=== PATIENT | female | born 1965 | race Caucasian/White ===

== ENCOUNTER 2019-07-04 07:26 | Inpatient (IN) ==
[2019-07-04] MEDS ORDERED: ASPIRIN PO ONE (07:36)
[2019-07-04] MEDS ORDERED: ASPIRIN PR ONE (07:36)
[2019-07-04 07:53] LABS: BASO# 0.09 X1000 (0.0-0.2); BASO% 0.8 % (0.0-0.8); EOS# 0.49 X1000 (0.0-0.7); EOS% 4.5 % (0.0-10.0); HEMATOCRIT 44.6 % (37.0-47.0); HEMOGLOBIN 15.1 g/dL (12.0-16.0); IMM GRAN# 0.02 X1000 (0.0-0.04); IMM GRAN% 0.2 % (0.0-0.5); LYMPH# 4.31 X1000 (1.2-3.4); LYMPH% 39.8 % (20.5-51.1); MCHC 33.9 g/dL (33-37); MCV 85.6 FL (81-99); MONO# 1.04 X1000 (0.11-0.59); MONO% 9.6 % (1.7-9.3); MPV 9.9 FL (7.4-10.4); NEUT# 4.88 X1000 (1.4-6.5); NEUT% 45.1 % (42.2-75.2); PLT 353 X1000 (130-400); RBC 5.21 XMIL (4.2-5.4); RDW 13.3 % (11.5-14.5); WBC 10.83 X1000 (4.8-10.8)
[2019-07-04] MEDS ORDERED: DUONEB (A & A) INH ONE (07:57)
[2019-07-04] MEDS ORDERED: NITROGLYCERIN SL ONE (07:57)
--- NOTE | 2019-07-04 08:03 | PROVIDER DOCUMENTATION ---
HPI-Chest Pain - General Chief Complaint: Chest Pain Stated Complaint: SOB Time Seen by Provider: 07/04/19 07:42 Source: patient Allergies/Adverse Reactions: Patient Allergies Allergy/AdvReac Type Severity Reaction Status Date / Time amoxicillin Allergy Unknown Unknown Verified 07/04/19 07:58 Home Medications: Home Medication List Medication Instructions Recorded Confirmed Last Taken Type Albuterol Sulfate Inhaler 1 puff INH PRN PRN 11/24/18 07/04/19 Unknown History [Ventolin Hfa] LISINOpril [Prinivil] 20 mg PO DAILY 11/24/18 07/04/19 Unknown History Atorvastatin Calcium [Lipitor] 1 tab PO DAILY 07/04/19 07/04/19 Unknown History Metformin [Glucophage] 1 tab PO BID 07/04/19 07/04/19 Unknown History Tiotropium [place] Inhaler 1 cap IN DAILY 07/04/19 07/04/19 Unknown History [Spiriva] - History of Present Illness-CP Nature of Presenting Problem: LONGSTANDING COPD PT AND SMOKER 1/2 PPD REPORTS INCREASED SOB X 2 DAYS, EXTRA COUGH W/ WHITE SPUTUM. NO FEVER. STERNA CHEST PRESSURE SINCE 05:30 TODAY. + ASSOCIATED SOB,DIAPHORESIS NO NAUSEA NO PRIOR CARDIAC HX. TREATED FOR HTN,COPD, Review of Systems - Adult - REVIEW OF SYSTEMS - ADULT Constitutional: reports: no symptoms reported. denies: chills, fever Eyes: reports: no symptoms reported Ears, Nose, Mouth & Throat: reports: no symptoms reported Cardiovascular: reports: see HPI Respiratory: reports: see HPI Gastrointestinal: reports: no symptoms reported Genitourinary: reports: no symptoms reported Musculoskeletal: reports: no symptoms reported Integumentary: reports: no symptoms reported Neurological: reports: no symptoms reported Psychiatric: reports: no symptoms reported Endocrine: reports: no symptoms reported Hematologic/Lymphatic: reports: no symptoms reported Allergic/Immunologic: reports: no symptoms reported All Other Systems: Reviewed and Negative Past History - Adult - PAST MEDICAL HISTORY-ADULT Review of Records: reports: Nursing Assessment Review, Medications Reviewed, Social history reviewed & non-contributory. Major Childhood Illnesses: reports: denies history Cardiovascular: reports: HTN Respiratory: reports: COPD (was on medication) Gastrointestinal: reports: denies history Obstetrical/Gynecological: reports: other (had 2 : 1 vaginal and 1 csec) Genitourinary: reports: denies history Musculoskeletal: reports: denies history Neurological: reports: denies history Psychiatric: reports: denies history Endocrine/Immune: reports: Diabetes Other Conditions: reports: denies history - PRIOR SURGERIES/PROCEDURES Surgical/Procedure History: reports: BTL, (x1) - IMMUNIZATION STATUS Childhood Immunizations: See Nurse Assessment Flu Vaccine: See Nurse Assessment - FAMILY HISTORY Family History: diabetes, cancer (lung, mother ), CVA/TIA (brother), other (siblings with thyroid) Physical Exam-General - PHYSICAL EXAM-ADULT Initial Vital Signs Reviewed: Yes (157/) - CONSTITUTIONAL General Appearance: alert, mild distress - EYES Eyes: PERRL/EOMI, pink conjunctivae - HEAD, EARS, NOSE, MOUTH & THROAT HENMT: normocephalic/atraumatic, moist mucous membranes - NECK Neck: full range of motion, supple - RESPIRATORY Respiratory: rales (VERY MILD RALES, NO WHEEZE, NO TACHYPENA OR INCREASED WOB) - CARDIOVASCULAR Cardiovascular: normal peripheral pulses, regular rate, rhythm, no edema, no gallop, no JVD, no murmur - GASTROINTESTINAL (ABDOMEN) Abdominal Exam: normal bowel sounds, non tender, soft - MUSCULOSKELETAL Back Exam: normal inspection, no CVA tenderness Extremity: normal range of motion, non-tender, normal inspection, no pedal edema , no calf tenderness, normal capillary refill - SKIN Integumentary: normal color, normal turgor, warm/dry - 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, grossly normal, no motor/sensory deficits - PSYCHIATRIC Psych/Mental Status: normal mood/affect, normal thought content, normal thought process, oriented x 3 - HEART Score HEART Score: History: Moderately Suspicious HEART Score: ECG: Normal HEART Score: Age: 45-65 Years HEART Score: Risk Factors for Atherosclerotic Disease: 1 or 2 Risk Factors HEART Score: Troponin: < or = Normal Limit Total HEART Score:: 3 Progress - PLAN OF CARE/RESULTS Progress/Plan/Lab Results: Vital Signs - 8 hr 07/04/19 07:31 07/04/19 08:09 07/04/19 08:26 Temperature 98.9 F Pulse Rate 73 80 66 Respiratory Rate 20 16 21 Blood Pressure 157/89 107/77 O2 Sat by Pulse Oximetry 95 92 L 92 L Laboratory Results - last 24 hr 07/04/19 07/04/19 07/04/19 07:10 08:00 08:00 WBC 10.83 H RBC 5.21 Hgb 15.1 Hct 44.6 MCV 85.6 MCH 29.0 MCHC 33.9 RDW Std Deviation 13.3 Plt Count 353 MPV 9.9 Immature Gran % (Auto) 0.2 Neut % (Auto) 45.1 Lymph % (Auto) 39.8 [place] % (Auto) 9.6 H Eos % (Auto) 4.5 Baso % (Auto) 0.8 Immature Gran # (Auto) 0.02 Neut # (Auto) 4.88 Lymph # (Auto) 4.31 H [place] # (Auto) 1.04 H Eos # (Auto) 0.49 Baso # (Auto) 0.09 PT INR PTT (Actin FS) D-Dimer, Quantitative Sodium 139 Potassium 4.0 Chloride 103 Carbon Dioxide 24 L Anion Gap 12 BUN 14 Creatinine 1.0 H Estimated GFR/1.73 m2 57 BUN/Creatinine Ratio 14 Glucose 145 H Calculated Osmolality 281 Calcium 8.9 Total Bilirubin 0.20 AST 27 ALT 21 Alkaline Phosphatase 55 Creatine Kinase 43 Troponin T Izk-Y-Cixlykpjjfe Pept 153 Total Protein 6.5 Albumin 4.2 Globulin 2.0 Albumin/Globulin Ratio 2.0 07/04/19 07/04/19 07/04/19 08:00 08:00 08:00 WBC RBC Hgb Hct MCV MCH MCHC RDW Std Deviation Plt Count MPV Immature Gran % (Auto) Neut % (Auto) Lymph % (Auto) [place] % (Auto) Eos % (Auto) Baso % (Auto) Immature Gran # (Auto) Neut # (Auto) Lymph # (Auto) [place] # (Auto) Eos # (Auto) Baso # (Auto) PT 13.0 INR 0.94 PTT (Actin FS) 28.5 D-Dimer, Quantitative 0.33 Sodium Potassium Chloride Carbon Dioxide Anion Gap BUN Creatinine Estimated GFR/1.73 m2 BUN/Creatinine Ratio Glucose Calculated Osmolality Calcium Total Bilirubin AST ALT Alkaline Phosphatase Creatine Kinase Troponin T < 0.010 Bqd-H-Kbjmrzlrxjg Pept Total Protein Albumin Globulin Albumin/Globulin Ratio Orders Category Date Time Status Cardiac Monitoring DIRECTED Care 07/04/19 07:36 Active Oxygen Therapy- ED Nursing DIRECTED Care 07/04/19 07:36 Active Saline Loc NOW Care 07/04/19 07:36 Active CHEST-2 VIEWS [RAD] Stat Exams 07/04/19 07:36 Completed CBC WITH ELECTRONIC DIFF [HEME] Stat Lab 07/04/19 07:10 Completed CK PROFILE [SP CHEM] Stat Lab 07/04/19 08:00 Completed COMPREHENSIVE METABOLIC PANEL [CHEM] Stat Lab 07/04/19 08:00 Completed D-DIMER [COAG] Stat Lab 07/04/19 08:00 Completed PRO B-NATRIURETIC PEPTIDE Stat Lab 07/04/19 08:00 Completed PROTIME WITH INR [COAG] Stat Lab 07/04/19 08:00 Completed PTT [COAG] Stat Lab 07/04/19 08:00 Completed TROPONIN T Stat Lab 07/04/19 08:00 Completed Albuterol 2.5MG/Ipratrop 0.5MG [Duoneb (A & A)] Med 07/04/19 07:57 Discontinued 3 ml INH NOW ONE Aspirin Med 07/04/19 07:36 Discontinued 300 mg NC NOW ONE Aspirin Med 07/04/19 07:36 Discontinued 325 mg PO NOW ONE Nitroglycerin Sl [Nitroglycerin] Med 07/04/19 07:57 Discontinued 0.4 mg SL NOW ONE Aerosol Treatments Routine Oth 07/04/19 07:57 Completed Aerosol Treatments Stat Oth 07/04/19 07:57 Completed CP/SOB/Palp >45 yrs of Age Stat Oth 07/04/19 07:36 Ordered EKG [EKG] Stat Ther 07/04/19 07:36 Draft Result Diagrams: 07/04/19 07:10 07/04/19 08:00 - EKG 1 Time of EKG reading by physician:: 07:39 EKG Read and Signed by:: Kirk Perez EKG Interpretation (*Must complete 3 of following elements*): Normal Rate: 72 Rhythm: nsr Streeter: normal QRS: normal NC Interval: normal ST Wave: normal - XRAY 1 XRAY Study: Chest Impression: See EMR Report - CONSULTS/PCP/HOSPITALIST Notification #1 *Consult/PCP/Hospitalist*: DR Fred JAIMES Time Discussed: :13 Consult Disposition: Admit Departure - Departure Date of Disposition Decision: 07/04/19 Time of Disposition Decision: 09:13 DIAGNOSIS: Chest pain, COPD exacerbation Disposition: ADMITTED INPATIENT 09 Certified Medical Emergency: Emergent Condition: Stable Referrals and Follow-Ups: None,PCP [Primary Care Provider] - - Critical Care Note This patient required my direct & personal management of CC.: No Attestation - Physician/ MADYSON Attestation Patient care was provided by Advanced Practice Provider:: No The physician spent face to face time with patient:: Yes Advanced Practice Provider documentation review:: Supervising physician onsite and consulted in the evaluation and care of this patient. The physician did have a face to face encounter with the patient.
--- NOTE | 2019-07-04 08:13 | EKG Report ---
Test Performed on : 07/04/2019 07:37:59 AM Test Reason : chest pain Blood Pressure : / mmHG Vent. Rate : 072 BPM Atrial Rate : 072 BPM P-R Int : 138 ms QRS Dur : 066 ms QT Int : 390 ms P-R-T Axes : 055 055 073 degrees QTc Int : 427 ms Normal sinus rhythm. Normal ECG When compared with ECG of 03-JUN-2018 09:51, No significant change was found Unconfirmed Result
[2019-07-04 08:24] LABS: INR 0.94
[2019-07-04 08:25] LABS: PTT 28.5 Seconds (22.3-41.8)
[2019-07-04 08:26] LABS: ALBUMIN 4.2 g/dL (3.5-5.0); CALCIUM 8.9 mg/dL (8.8-10.2); TOTAL BILIRUBIN 0.2 mg/dL (0.20-1.00); TOTAL PROTEIN 6.5 g/dL (6.3-8.3)
--- NOTE | 2019-07-04 08:55 | Diag Imaging Result Doc PS360 ---
EXAM: CHEST-2 VIEWS HISTORY: chest pain TECHNIQUE: PA and Lateral chest x-ray COMPARISON: 12/06/2018 FINDINGS: Suboptimal inspiratory result with slight elevation left hemidiaphragm. There is pulmonary emphysema. The cardiomediastinal silhouette is within normal limits. The pulmonary vasculature is not congested. No infiltrate, effusion, or pneumothorax is appreciated. IMPRESSION: No acute cardiopulmonary abnormality is identified. Pulmonary emphysema. Electronically signed by Josee Knight 07/04/2019 8:52 AM
[2019-07-04] MEDS ORDERED: ROCEPHIN 1 GM in NS 50 ML IV ONE (09:15)
[2019-07-04] MEDS ORDERED: SOLU-MEDROL IV ONE (09:15)
[2019-07-04] MEDS ORDERED: PROTONIX PO ONE (09:16)
[2019-07-04] MEDS ORDERED: PEPCID PO ONE (09:16)
[2019-07-04] MEDS ORDERED: ZOFRAN IV PRN ×2 (10:09→11:36)
[2019-07-04] MEDS ORDERED: DUONEB (A & A) INH PRN (10:11)
[2019-07-04] MEDS ORDERED: NICODERM PATCH TD ONE (10:15)
[2019-07-04] MEDS: DUONEB (A & A) INH SCH ×3 (11:08→20:05)
[2019-07-04] MEDS ORDERED: TYLENOL PO PRN ×2 (11:36)
--- NOTE | 2019-07-04 11:50 | HISTORY AND PHYSICAL ---
CHIEF COMPLAINT: Shortness of breath, chest pain, cough. HISTORY OF PRESENT ILLNESS: This is a 54-year-old female with a history of diabetes mellitus, hypertension, COPD, as well as continued nicotine use. She presents to the emergency room complaining of increasing shortness of breath, productive cough over the last 48 hours. She states that this morning after waking and walking around, she developed chest pain that she describes as a tightness. She could identify no exacerbating or alleviating factors. She reports pain similar to this with prior COPD exacerbations, although she does state that she felt a fluttering in her chest during this time, and this was new. She denied any syncope or dizziness, any diaphoresis. She did state that she has had some generalized body aches and chills during this time. PAST MEDICAL HISTORY: 1. Diabetes mellitus type 2. 2. Hypertension. 3. High cholesterol. 4. COPD. PAST SURGICAL HISTORY: section, bilateral tubal ligation. SOCIAL HISTORY: She smokes about half a pack to a pack of cigarettes a day. She denies any alcohol or illicit drug use. ALLERGIES: Amoxicillin, which causes a rash and hives. REVIEW OF SYSTEMS: Discussed with the patient, with pertinent positives stated in the HPI. She denied any syncope or dizziness, any nausea, vomiting, diarrhea, constipation, black or bloody vomitus or stools, hematuria, dysuria, frequency, urgency. PHYSICAL EXAMINATION: GENERAL: This is a 54-year-old female who is sitting up on the stretcher in the emergency room in no distress. VITAL SIGNS: Blood pressure is 107/77 with a heart rate of 66, respirations are 20, temperature is 98.9 degrees, with O2 saturations that are 90% to 92% on 2 L nasal cannula. EYES: Pupils equal, round, react to light. EOMs are intact. Sclerae anicteric. HENT: Head is normocephalic, atraumatic. Mucous membranes are moist. NECK: Supple with trachea midline. CARDIOVASCULAR: Regular rate and rhythm. S1 and S2 appreciated. She has no lower extremity edema. EXTREMITIES: Calves are nontender bilaterally, with peripheral pulses palpable x4 extremities. PULMONARY: Breath sounds with some scattered expiratory wheezes. She does have prolonged expiration. Chest rises and falls symmetrically with respiration. Chest wall is nontender to palpation. GASTROINTESTINAL: Abdomen is soft, nontender, nondistended with bowel sounds in all 4 quadrants. GENITOURINARY: No CVA or suprapubic tenderness. NEUROLOGIC: She is alert and oriented x3. SKIN: Warm and dry. IMAGING AND LABORATORY DATA: WBC is 10.8, with hemoglobin 15.1, hematocrit 44.6, and platelets of 353,000. INR 0.94. D-dimer 0.33. Sodium 139, potassium 4, BUN 14, creatinine 1, with a glucose of 145. Troponin is less than 0.010. Blood cultures are pending. Sputum culture has been ordered. Chest x-ray reveals no acute cardiopulmonary abnormality identified, pulmonary emphysema, slight elevation of the left hemidiaphragm. EKG reveals sinus rhythm at a rate of 72. ASSESSMENT AND PLAN: 1. Chronic obstructive pulmonary disease, acute on chronic exacerbation. DuoNebs every 4 hours and every 2 hours as needed, with steroids to taper. Identify her home medications and continue as appropriate. Incentive spirometer every 4 hours per Respiratory Therapy. Obtain a sputum specimen. 2. Leukocytosis. Blood cultures are pending. Start Levaquin, and further antibiotics will be culture driven. 3. Chest pain. This is very likely secondary to chronic obstructive pulmonary disease exacerbation. We will place her on telemetry. Will trend her cardiac profile and troponins. 4. Diabetes mellitus type 2. Pattern blood glucose with sliding scale insulin. 5. Hypertension. Identify her home medications, and continue as appropriate. 6. Nicotine use and abuse. Smoking cessation was discussed with the patient. Nicotine patch was offered, which the patient agrees to use. She will also be given smoking cessation materials. 7. Deep venous thrombosis prophylaxis with Lovenox. 8. Gastrointestinal prophylaxis with Prilosec. Plan was discussed with Dr. Han. Further treatments pending hospital course. Dictated by EBONI Dubois for Kam Han MD cc: EBONI Dubois MD
--- NOTE | 2019-07-04 11:56 | EKG Report ---
Test Performed on : 07/04/2019 10:38:39 AM Test Reason : chest pain Blood Pressure : / mmHG Vent. Rate : 058 BPM Atrial Rate : 058 BPM P-R Int : 172 ms QRS Dur : 064 ms QT Int : 436 ms P-R-T Axes : 066 002 071 degrees QTc Int : 428 ms Sinus bradycardia. Low voltage QRS T wave abnormality, consider anterior ischemia Abnormal ECG When compared with ECG of 04-JUL-2019 07:37, (Unconfirmed) No significant change was found Confirmed by Jose Santoyo MD ([id number]) on 07/07/2019 11:43:41 AM
[2019-07-04] MEDS: LOVENOX SUBQ SCH (12:05)
[2019-07-04] MEDS: NS 1,000 ML IV SCH (12:59)
[2019-07-04] MEDS: LEVAQUIN 750 MG/D5W 750 MG/150 ML IVPB IV SCH (12:59)
[2019-07-04] MEDS ORDERED: PNEUMOVAX 23 IM ONE (14:00)
[2019-07-04] MEDS: HUMALOG SUBQ SCH ×3 (17:25→21:24)
[2019-07-04] MEDS: SOLU-MEDROL IV SCH (17:59)
--- NOTE | 2019-07-04 23:35 | HISTORY AND PHYSICAL ---
ADDENDUM: Patient seen and examined by myself. Full note dictated and discussed with nurse practitioner. Patient presented to the hospital with increased cough, congestion, shortness of breath, increased work of breathing. We are going to admit her to the hospital, treat for COPD exacerbation and we will follow. cc: Kam Han MD
[2019-07-05] MEDS: DUONEB (A & A) INH SCH ×7 (00:05→22:59)
[2019-07-05] MEDS: SOLU-MEDROL IV SCH ×3 (01:47→18:12)
[2019-07-05 04:07] LABS: BASO# 0.01 X1000 (0.0-0.2); HEMATOCRIT 38.9 % (37.0-47.0); IMM GRAN# 0.04 X1000 (0.0-0.04); IMM GRAN% 0.2 % (0.0-0.5); LYMPH# 1.41 X1000 (1.2-3.4); MCH 28.4 PG (27-31); MCHC 33.4 g/dL (33-37); MCV 84.9 FL (81-99); MONO# 0.52 X1000 (0.11-0.59); MONO% 2.6 % (1.7-9.3); MPV 9.7 FL (7.4-10.4); NEUT# 18.11 X1000 (1.4-6.5); NEUT% 90.2 % (42.2-75.2); PLT 312 X1000 (130-400); RBC 4.58 XMIL (4.2-5.4); RDW 13.5 % (11.5-14.5); WBC 20.09 X1000 (4.8-10.8)
[2019-07-05 04:22] LABS: CALCIUM 8.8 mg/dL (8.8-10.2); CREATININE 1.3 mg/dL (0.5-0.9); TOTAL BILIRUBIN 0.2 mg/dL (0.20-1.00); TOTAL PROTEIN 6.4 g/dL (6.3-8.3)
[2019-07-05 04:23] LABS: BANDS 2 % (0-1); LYMPHS 11 % (21-51); MONO 2 % (1-9); POIKILOCYTOSIS OCCASIONAL; SEGS 85 % (42-75)
[2019-07-05 04:24] LABS: STOMATOCYTES OCCASIONAL
[2019-07-05] MEDS: HUMALOG SUBQ SCH (06:34)
[2019-07-05] MEDS: PRILOSEC PO SCH (06:34)
[2019-07-05] MEDS: NS 1,000 ML IV SCH (11:06)
[2019-07-05] MEDS: HUMALOG (PARKWAY) SUBQ SCH ×3 (11:08→22:32)
[2019-07-05] MEDS: LEVAQUIN 750 MG/D5W 750 MG/150 ML IVPB IV SCH (13:12)
[2019-07-05] MEDS: LOVENOX SUBQ SCH (13:12)
--- NOTE | 2019-07-06 00:24 | PROGRESS NOTE ---
DATE: 07/05/2019 SUBJECTIVE: Patient notes that she is feeling better. Notes that she would prefer to go home. Still short of breath, still wheezing. PHYSICAL EXAMINATION: Vital Signs: Reviewed. Temperature 97.5 degrees, pulse 94, respiratory rate 18, BP 104/44. General: Patient is awake, currently in mild respiratory distress. She is having some wheezing, mildly labored. HEENT: Normocephalic. Neck: Supple. Cardiovascular: Regular rate. Chest: Decreased but equal breath sounds. Improved wheezing. Improved air movement. Abdomen: Soft, nondistended. Extremities: Moves all extremities. ASSESSMENT: 1. Chronic obstructive pulmonary disease with exacerbation. 2. Diabetes. 3. Hypertension. 4. High cholesterol. PLAN: We are going to decrease patient's Solu-Medrol to 40. Continue breathing treatments. Continue to follow. If she tolerates hopefully she can discharge home in the a.m. cc: Kam Han MD
[2019-07-06] MEDS: SOLU-MEDROL IV SCH ×3 (02:13→17:22)
[2019-07-06] MEDS: DUONEB (A & A) INH SCH ×4 (03:07→15:32)
[2019-07-06] MEDS: PRILOSEC PO SCH ×2 (05:48→06:00)
[2019-07-06] MEDS: HUMALOG (PARKWAY) SUBQ SCH ×3 (06:00→17:23)
[2019-07-06] MEDS: NS 1,000 ML IV SCH ×2 (06:32→10:57)
[2019-07-06 07:26] LABS: BASO# 0.01 X1000 (0.0-0.2); EOS# 0.01 X1000 (0.0-0.7); HEMATOCRIT 38.7 % (37.0-47.0); HEMOGLOBIN 12.4 g/dL (12.0-16.0); IMM GRAN# 0.07 X1000 (0.0-0.04); IMM GRAN% 0.3 % (0.0-0.5); LYMPH# 1.28 X1000 (1.2-3.4); LYMPH% 4.9 % (20.5-51.1); MCH 27.9 PG (27-31); MONO# 1.07 X1000 (0.11-0.59); MONO% 4.1 % (1.7-9.3); MPV 10.7 FL (7.4-10.4); NEUT# 23.95 X1000 (1.4-6.5); NEUT% 90.7 % (42.2-75.2); PLT 307 X1000 (130-400); RBC 4.45 XMIL (4.2-5.4); RDW 14.2 % (11.5-14.5); WBC 26.39 X1000 (4.8-10.8)
[2019-07-06 07:38] LABS: ALBUMIN 3.9 g/dL (3.5-5.0); CALCIUM 8.7 mg/dL (8.8-10.2); CREATININE 1.2 mg/dL (0.5-0.9); PHOSPHORUS 2.9 mg/dL (2.7-4.5); POTASSIUM 4.2 mmol/L (3.5-5.1)
[2019-07-06 08:52] LABS: LYMPHS 9 % (21-51); MONO 2 % (1-9); SEGS 89 % (42-75)
--- NOTE | 2019-07-06 10:17 | Diag Imaging Result Doc PS360 ---
EXAM: CHEST-2 VIEWS HISTORY: hypoxia TECHNIQUE: PA and Lateral chest x-ray COMPARISON: None. FINDINGS: The cardiomediastinal silhouette is within normal limits. The pulmonary vasculature is not congested. Mild elevation left hemidiaphragm is noted. There is a small left basilar infiltrate and left pleural effusion. There is a probable small right pleural effusion posteriorly. IMPRESSION: 1.New small left basilar infiltrate and effusion. 2.Tiny posterior right effusion. 3.Mild elevation left hemidiaphragm. Electronically signed by Josee Knight 07/06/2019 10:15 AM
[2019-07-06] MEDS: LEVAQUIN 750 MG/D5W 750 MG/150 ML IVPB IV SCH (12:02)
[2019-07-06 16:26] VITALS: BP 118/59
[2019-07-06] MEDS: LOVENOX SUBQ SCH (17:30)
--- NOTE | 2019-07-07 04:40 | DISCHARGE SUMMARY ---
ADMISSION DATE: 07/04/2019 DISCHARGE DATE: 07/06/2019 DISCHARGE DIAGNOSES: 1. Chronic obstructive pulmonary disease with exacerbation. 2. Chronic tobacco abuse. 3. High cholesterol. 4. Hypertension. 5. Diabetes type 2. CONSULTATIONS: None. PROCEDURES: None. BRIEF HOSPITAL COURSE: The patient is a 54-year-old female who presented to the hospital with cough, congestion, shortness of breath. Was treated in usual fashion, placed on high-dose Solu- Medrol. Thankfully, this did not affect her diabetes. She was placed on breathing treatments, oxygen. On discharge, her chest x-ray does demonstrate a possible mild early pneumonia. Therefore, she will be discharged home on antibiotics, continue breathing treatments. DISPOSITION: Patient currently is in no distress. She states she is feeling back to her baseline. Therefore, she will be discharged home. As noted, she probably does have a early mild right basilar pneumonia. We are going to place her on antibiotics, breathing treatments, steroids. She will follow up outpatient with her primary care. cc: Kam Han MD
== END 2019-07-06 18:40 | disposition home or self-care (01) | DRG 190 ==
LOC: P.ED 07:26 → P.MEDSURG 10:25
PROVIDERS: ATTEND Family Medicine